=== PATIENT | male | born 1955 | race Caucasian/White ===

== ENCOUNTER → 2024-06-01 12:32 | Outpatient (REF) | payer MEDICARE, SELFPAY | LOC: RAD 12:32 | PROVIDERS: ATTENDING PHYSICIAN Specialist; FAMILY PHYSICIAN Family Medicine | DX: M19.011 Primary osteoarthritis, right shoulder (principal) | CPT/HCPCS: 73200 ==

== ENCOUNTER 2024-07-22 09:07 | Inpatient (IN) | payer MEDICARE, SELFPAY ==
[2024-06-21 09:07] LABS: Hematocrit 38.6 % (39.0-52.0); Hemoglobin 13.4 g/dL (13.0-18.0); Mean Corp Hgb Conc. 34.7 g/dL (33.0-37.0); Mean Corpuscular Hgb 31.5 pg (27.0-31.0); Mean Corpuscular Volume 90.8 fL (80.0-94.0); Mean Platelet Volume 9.2 fL (7.4-10.4); Platelet Count 261 10^3/uL (130-400); Red Blood Cell Count 4.25 10^6/uL (4.70-6.10); Red Cell Dist. Width 12.6 % (11.5-14.5); White Blood Cell Count 4.4 10^3/uL (4.8-10.8)
[2024-06-21 10:13] LABS: ALT (SGPT) 21 U/L (0-50); AST (SGOT) 26 U/L (17-59); Albumin 4.6 g/dl (3.5-5.0); Alkaline Phosphatase 71 U/L (38-126); Blood Urea Nitrogen 17 mg/dl (9-20); Calcium 9.5 mg/dl (8.4-10.2); Carbon Dioxide 25 mmol/L (22-30); Chloride 105 mmol/L (98-107); Glucose 90 mg/dl (70-99); Potassium 4.2 mmol/L (3.5-5.1); Sodium 143 mmol/L (135-145); Total Bilirubin 0.8 mg/dl (0.2-1.3); Total Protein 7.2 g/dl (6.3-8.2); eGFR > 60.00
[2024-06-21 10:34] LABS: Glycohemoglobin (HgbA1c) 4.8 % (4.0-5.6)
[2024-06-21 12:35] VITALS: BMI 32.5
[2024-07-15 10:33] VITALS: BMI 32.5
[2024-07-22] VITALS (13 sets, daily range): BP systolic 116–149; BP diastolic 65–81; PULSE 61; O2SAT 95; BMI 32.5
[2024-07-22] MEDS: CELEBREX 200 MG PO (09:59)
[2024-07-22] MEDS: NORMOSOL-R/PLASMALYTE-A 1000 IV ×2 (09:59→14:12)
[2024-07-22] MEDS: TYLENOL 1000 MG PO (09:59)
--- NOTE | 2024-07-22 12:46 | W.PN.UPDATE ---
Update Note
Progress Note Update
R shoulder OA s/p R Reverse TSA w/ Dr Nguyen 07/22/24
- L shoulder OA w/ incomplete tear of the L rotator cuff s/p L Reverse TSA w/ Dr Nguyen 07/17/23
DVT prophylaxis - ASA, b/l venous foot pumps
Abnormal EKG; pt asymptomatic, able to preform >4 METS
Closed nondisplaced longitudinal fracture of the left patella secondary to mechanical fall 01/2023, treated conservatively
Lumbar degenerative disc disease
Gout
Obesity, BMI 32.5
[2024-07-22] MEDS: DILAUDID 0.25 MG IV (13:59)
--- NOTE | 2024-07-22 14:43 | PTCARENOTE ---
Telephone report received from [employer] Monica, patient received in bed @14:43 with right arm in sling, no complaints of pain, VSS.
[2024-07-22] MEDS: TYLENOL 650 MG PO ×3 (15:32→22:59)
[2024-07-22] MEDS: FEOSOL 325 MG PO (15:32)
[2024-07-22] MEDS: ANCEF 5 IV (17:18)
[2024-07-22] MEDS: ASPIRIN 325 MG PO (17:19)
[2024-07-22] MEDS: ANESTHETIC LOZENGE 1 LOZENGE PO ×2 (18:18→22:45)
[2024-07-22] MEDS: COLACE 100 MG PO (19:18)
[2024-07-22] MEDS: SENOKOT 17.2 MG PO (19:18)
[2024-07-22] MEDS: BACTROBAN 2% OINTMENT 1 APPLIC NASAL (19:21)
[2024-07-22] MEDS: PEPCID 20 MG PO (22:45)
[2024-07-22] MEDS: ROXICODONE 10 MG PO (22:50)
[2024-07-23 02:30] VITALS: BP 123/71
[2024-07-23] MEDS: ANCEF 5 IV (02:31)
[2024-07-23] MEDS: ANESTHETIC LOZENGE 1 LOZENGE PO (02:38)
[2024-07-23] MEDS: ROXICODONE 10 MG PO ×2 (02:38→06:45)
[2024-07-23] MEDS: TYLENOL PO (05:05)
[2024-07-23 05:40] VITALS: BP 127/67
[2024-07-23] MEDS: COLACE 100 MG PO (07:26)
[2024-07-23] MEDS: FEOSOL 325 MG PO (07:26)
[2024-07-23] MEDS: MOBIC 15 MG PO (07:26)
[2024-07-23] MEDS: ASPIRIN 325 MG PO (07:26)
[2024-07-23] MEDS: SENOKOT 17.2 MG PO (07:26)
[2024-07-23] MEDS: BACTROBAN 2% OINTMENT 1 APPLIC NASAL (07:27)
[2024-07-23] MEDS: TYLENOL 650 MG PO (07:27)
[2024-07-23 07:44] VITALS: BP 111/56
--- NOTE | 2024-07-23 08:07 | W.PN.ORTHO ---
Today's Communication / Plan
-
Patient doing well this AM
Plan for D/c home later today
Continue sling RUE. NWB/No lifting RUE
Limited exercises (pendulums, shrugs, retractions, elbow, wrist, hand ROM OK)
ASA 325mg daily x 4 weeks
Dressing to remain until 2 weeks follow-up outpatient
Assessment
.
Distal Motor Intact: Yes
Dressing:
Clean, dry and intact. Aquacel dressing in place right shoulder
Assessment:
POD#1 Right RTSA
Overall doing/feeling well
Good sensation in axillary nerve distribution
Plan
.
Surgery / Date: Right RTSA Jul 19 (Patrick)
DVT Prophylaxis: Aspirin
Activity:
Out of bed. Sling RUE. NWB/No lifting RUE
PT/OT
Discharge Plan: Home
Subjective
.
.:
Patient seated comfortably at bedside. No significant pain
Vital Signs and Labs
.
Vital Signs and Labs:
Lab Results
06/21/24 06:39
06/21/24 06:39
Temp Pulse Resp BP Pulse Ox
98.8 F 82 19 111/56 97
07/23/24 07:44 07/23/24 07:44 07/23/24 07:44 07/23/24 07:44 07/23/24 07:44
Non-invasive Hgb result: 14.7
--- NOTE | 2024-07-23 08:10 | W.DS.TRANS ---
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
-
Discharge Instructions:
Sleep Apnea Risk Intermediate
Discharge Diagnosis/Procedures R shoulder OA s/p R Reverse TSA w/ Dr Nguyen
24
Diet Regular
Activity As tolerated
Additional Activity Non-weightbearing right upper extremity
Driving Restrictions Not until seen by your Dr
Bathing Restrictions OK to Shower
Instructions:
Stand-Alone Forms: Total Shoulder Replacement D/C
Changes to Home Medications: No
Discharge Medications:
DC Medications w/original date entered in [facility]
ferrous sulfate 325 mg (65 mg iron) tablet (Iron (ferrous sulfate)) 325 mg PO DAILY 07/15/24
mecobalamin (vitamin B12) 1,000 mcg chewable tablet 1,000 mcg PO DAILY 07/15/24
multivitamin 1 tab PO DAILY 07/15/24
mupirocin 2 % topical ointment 1 applic topical BID 07/15/24
acetaminophen 500 mg tablet (Tylenol Extra Strength) 1,000 mg (2 x 500 mg) PO Q6H #0 tabs 07/22/24
aspirin 325 mg tablet 325 mg PO DAILY #30 tabs 07/22/24
meloxicam 15 mg tablet 15 mg PO DAILY #0 tabs 07/22/24
ondansetron HCl 4 mg tablet 4 mg PO Q6H PRN nausea and vomiting #30 tabs 07/22/24
oxycodone 5 mg tablet 5 - 10 mg (1 - 2 x 5 mg) PO Q6H PRN moderate-severe pain 0 days #30 tabs 07/22/24
Home Medication Changes
Pending Results: No
--- NOTE | 2024-07-23 10:24 | CM ---
Reviewed the chart notes and spoke with the patient at the bedside. The patient resides in a two story home with two steps to enter. The patient has a friend that resides with him. Friend will be transporting the patient home today. The patient
reports no DME/VN/SNF in the past. The patient plans on going to outpatient PT/OT, therefore does not qualify for VN. The patient confirmed his pharmacy of choice is the [facility]. MICHAEL continues to be available to patient/family
and is monitoring medical plan for needs at discharge.
Plan: Discharge to home today with outpatient PT/OT.
[2024-07-23] MEDS: ROXICODONE 5 MG PO (10:32)
== END 2024-07-23 10:48 | disposition home or self-care (01) | DRG 483 ==
LOC: 2 SOUTH 09:07
PROVIDERS: ADMITTING PHYSICIAN Specialist
PROC: 0RRJ00Z Replacement of Right Shoulder Joint with Reverse Ball and Socket Synthetic Substitute, Open Approach (ICD-10-PCS; 2024-07-22)
DX: M19.011 Primary osteoarthritis, right shoulder (principal)
CPT/HCPCS: 73020; 80053; 83036; 85027; 87070; 93005; 97110; 97166; 97535; C1713; C1776

== ENCOUNTER → 2024-11-18 12:00 | Outpatient (REF) | payer MEDICARE, SELFPAY | LOC: DHSLP 12:00 | PROVIDERS: ATTENDING PHYSICIAN Otolaryngology; FAMILY PHYSICIAN Family Medicine | DX: G47.33 Obstructive sleep apnea (adult) (pediatric) (principal) | CPT/HCPCS: 95800 ==

== ENCOUNTER → 2025-05-13 06:14 | Outpatient (REF) | payer MEDICARE, SELFPAY | LOC: MRI 06:14 | PROVIDERS: ATTENDING PHYSICIAN Physical Medicine & Rehabilitation; FAMILY PHYSICIAN Family Medicine | DX: M54.16 Radiculopathy, lumbar region (principal) | CPT/HCPCS: 72148 ==

== ENCOUNTER 2025-07-29 06:07 | Emergency (ER) | payer MEDICARE, SELFPAY ==
[2025-07-29 06:15] VITALS: BP 127/68
--- NOTE | 2025-07-29 07:39 | ED.GENMED ---
History of Present Illness
General
Chief Complaint: Back Pain
Source: patient
Exam Limitations: none
Time Seen by Provider: 07/29/25 07:11
Nursing documentation reviewed up to this point in time: agreed with
History of Present Illness
History of Present Illness:
see MDM
Review of Systems
Review of Systems
Allergies reviewed?: Yes
All Other Systems: Not applicable
Phy Exam
Physical Exam
Physical Exam:
GENERAL: Alert , in no apparent distress, comfortable at rest
HEAD: NCAT
NECK: no midline tenderness, active ROM intact, no paraspinal muscle tenderness;
CARDIAC: Regular rate and rhythm, no edema
LUNGS: Clear breath sounds bilaterally, no acute respiratory distress, no wheezes/rales/rhonchi
ABDOMEN: Soft, without focal tenderness, no r/g, no cvat, normal bowel sounds, nondistended
NEUROLOGICAL: Alert and oriented, no focal neuro deficits, CN intact, 5/5 strength, sensation intact, able to walk
SKIN: Warm and dry,
MUSCULOSKELETAL: No edema, well perfused. L hip and buttocks normal insepction
flexion hip intact
no significnat pain with rotation
Back: No midline tenderness, L si joint tenderness, pain to the thigh with 15 degrees straight leg raise
PSYCH: Normal and appropriate interaction.
Course
Orders/Labs/Results
Orders:
Orders
07/29/25 07:37
Prednisone [Deltasone] 50 mg PO NOW STA
Vital Signs
Initial and Last Documented VS:
Initial Vital Signs
Temp Pulse Resp BP Pulse Ox
36.8 C 77 20 127/68 98
07/29/25 06:15 07/29/25 06:15 07/29/25 06:15 07/29/25 06:15 07/29/25 06:15
Last Documented Vital Signs
Temp Pulse Resp BP Pulse Ox
36.8 C 77 20 127/68 98
07/29/25 06:15 07/29/25 06:15 07/29/25 06:15 07/29/25 06:15 07/29/25 07:41
MDM/Problems Addressed
Differential Diagnosis Includes:
see MDM
MDM/Problems Addressed:
Note:
CHIEF COMPLAINT(S)
Severe back pain
HISTORY OF PRESENT ILLNESS
The patient, a 69-year-old male with a history of chronic back pain, presents with exacerbation chronic pain x 4 days. This is reportedly the first instance in 35 years that the patient has visited an emergency room for this issue. The pain has been
worsening since Thursday and extends down to the left buttocks and leg. The patient described the pain as nerve-related and severe, stating, 'Its severe nerve and contract.' The patient has a history of fourth lumbar disc surgery in 1982 and has
been experiencing intermittent back pain since. The current episode is characterized by increased severity, impacting the patient�s ability to sleep, especially on the affected side. The patient is active in his work, involving physical labor such
as climbing and using extension ladders. The pain has escalated, affecting daily activities, as noted when cutting the grass on and increased nocturnal pain stated as, 'I woke up 1, 2 oclock this morning, and my side was killing me.'
no fever, chills, rash, leg weakness, incontinence
PAST MEDICAL AND SURGICAL HISTORY
The patient underwent lumbar surgery in 1982.
CHRONIC MEDICAL CONDITIONS SIGNIFICANTLY AFFECTING CARE
Chronic back pain since lumbar disc surgery.
SOCIAL HISTORY
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
MEDICATIONS
Patient takes meloxicam daily for pain.
REVIEW OF SYSTEMS
- Musculoskeletal: Chronic back pain, recent worsening of lower back pain radiating to the buttock and leg.
- Neurological: No numbness or weakness in the legs currently.
- Sleep Disturbances: Difficulty sleeping due to back pain.
PHYSICAL EXAM
- Musculoskeletal: Tenderness noted in the lower back, specifically around the tailbone area, which is reported to have a fracture.
- Neurological: No numbness or weakness noted in the legs during examination.
Nursing notes reviewed and vital signs reviewed.
PROBLEM LIST
- Acute: Worsening severe lower back pain
- Chronic: Chronic back pain due to lumbar surgery
No signs of cauda equina. Patient has left SI joint pain and pain at night. It radiates down into his thigh. He has had an MRI showing central disc protrusion causing canal stenosis. His pain is controlled at the moment but is worse with lying
on his side at night. Will give him a short course of oxycodone as the patient has no significant abuse history or overuse on PDMP. Also will prescribe oral steroids.
PLAN
- Initiate a course of oral steroids for inflammation control, with a significant dose for five days, starting today.
- Prescribe oxycodone for night-time pain management to facilitate sleep, emphasizing its temporary nature.
- Continue meloxicam and consider Tylenol for additional pain relief.
- Follow-up with a specialist as previously scheduled to evaluate further management options.
DIFFERENTIAL DIAGNOSIS
The Differential Diagnosis includes, in no particular order and is not limited to:
1. Herniated lumbar disc
2. Lumbar spinal stenosis
3. Sciatica
4. Lumbar fracture
5. Degenerative disc disease
6. Sacroiliitis
7. Facet joint arthritis
8. Lumbar radiculopathy
9. Myofascial pain syndrome
10. Vertebral compression fracture
*Pulse Oximetry
SaO2: 98
Oxygen Mode of Delivery: Room air
Patient hypoxic: no (98)
*Critical Care Note
Total Time (30-74mins, 75-104mins- exclusive of procedures): Not Applicable
ED Attending Note
-
Portions of this chart may have been created with voice recognition software.� Occasional wrong word or��sound alike� substitutions may have occurred due to the inherent limitations of voice recognition software.
Discharge Plan
Departure
Patient Disposition: Home (Routine Discharge)
Date of Disposition: 07/29/25
Time of Disposition: 08:00
Patient with high blood pressure during this ER visit?: No
Condition: Fair
Covid-19: Not Applicable
Discharge Problem:
Sciatica
Instructions: Sciatica (DC)
Prescriptions:
New
prednisone 50 mg tablet
50 mg PO DAILY Qty: 5 0RF
oxycodone 5 mg tablet
5 mg PO QHS PRN (Reason: Pain) Qty: 7 0RF
No Action
mupirocin 2 % Ointment
1 applic TOPICAL BID
Patient Comments:
started on thursday07/18/24 and completed BID
multivitamin Tablet
1 tab PO DAILY
ferrous sulfate [Iron (ferrous sulfate)] 325 mg (65 mg iron) Tablet
325 mg PO DAILY
mecobalamin (vitamin B12) 1,000 mcg Tablet,Chewable
1,000 mcg PO DAILY
ondansetron HCl 4 mg tablet
4 mg PO Q6H PRN (Reason: nausea and vomiting) Qty: 30 0RF
Rx Instructions:
Prescribed by surgeon's office pre-op.
aspirin 325 mg tablet
325 mg PO DAILY Qty: 30 0RF
Rx Instructions:
Take daily x4 weeks for blood clot prevention
meloxicam 15 mg Tablet
15 mg PO DAILY Qty: 0 0RF
Rx Instructions:
Home medication. Take with food.
DO NOT take within 2 hours of Aspirin.
acetaminophen [Tylenol Extra Strength] 500 mg Tablet
1,000 mg PO Q6H Qty: 0 0RF
Rx Instructions:
DO NOT exceed >4000 mg daily
oxycodone 5 mg Tablet
5 - 10 mg PO Q6H PRN (Reason: moderate-severe pain) Qty: 30 0RF
Rx Instructions:
1 tab for moderate pain, 2 if severe.
Dx total joint.
Referrals:
Ayo Florez MD [Family Provider, Otology]
Activity Restrictions/Additional Instructions:
Take the prednisone once a day starting tomorrow. Take Tylenol 2 extra strength 3 times a day and your meloxicam through in the morning as usual
At nighttime you can try an oxycodone 5 mg to help you sleep. This is a narcotic. He can cause constipation and sedation. Do not mix with alcohol and do not drive with it. Please follow-up with orthopedics as planned. Return for leg weakness,
numbness, incontinence, fever or chills, inability to walk or any concerns
Interventions
Interventions:
*Risk Screen - Suicide Last Done: 07/29/25 06:15
*General Assessment Last Done: 07/29/25 06:15
*Neglect/Abuse Screening Last Done: 07/29/25 06:15
*ED- Fall Risk Assessment Last Done: 07/29/25 06:15
*ED COVID-19 Vaccine History Last Done: 07/29/25 06:15
*ED Influenza Vaccine History Last Done: 07/29/25 06:15
*Nursing Disposition Last Done: 07/29/25 08:40
ED-Musculoskeletal Assessment Last Done: 07/29/25 08:10
Discharge Date and Time
Discharge Date/Time: 07/29/25 08:41
Print Language: [id number]
[2025-07-29] MEDS: DELTASONE 50 MG PO (08:02)
== END 2025-07-29 08:41 | disposition home or self-care (01) ==
LOC: EMR 06:07
PROVIDERS: EMERGENCY PHYSICIAN Emergency Medicine; FAMILY PHYSICIAN Otolaryngology
DX: M54.42 Lumbago with sciatica, left side (principal)
CPT/HCPCS: 99283